=== PATIENT | female | born 1995 | race Caucasian/White ===

== ENCOUNTER → 2018-06-03 | Outpatient (CLI) | payer BC ==
--- NOTE | 2018-06-03 13:36 | US ---
EXAMINATION TYPE: US abdomen complete DATE OF EXAM: 06/03/2018 COMPARISON: None CLINICAL HISTORY: R10.9 Abd pain. Intermittent left flank pain x 2 months TECHNIQUE: Multiple sonographic images of the abdomen are obtained. FINDINGS: EXAM MEASUREMENTS: Liver Length: 11.9 cm Gallbladder Wall: 0.2 cm CBD: 0.3 cm Spleen: 12.5 cm Right Kidney: 8.4 x 5.1 x 4.7 cm Left Kidney: 9.1 x 3.9 x 4.2 cm Pancreas: obscured by overlying midline bowel gas Liver: visualized portions wnl, scanned intercostally, limited by rib shadowing Gallbladder: wnl Evidence for sonographic Pruitt's sign: no CBD: visualized portions wnl, limited by overlying bowel gas Spleen: wnl Right Kidney: wnl Left Kidney: wnl Upper IVC: wnl Abd Aorta: visualized portions wnl, limited by overlying midline bowel gas IMPRESSION: Bowel gas shadowing causing some limitations. Otherwise, no specific abnormality identified.
== END | disposition home or self-care (01) ==
LOC: RADUSWWP 10:18
PROVIDERS: ATTEND Family Medicine
DX: R14.3 Flatulence (principal)
CPT/HCPCS: 76700

== ENCOUNTER → 2018-06-12 | Outpatient (CLI) | payer BC ==
--- NOTE | 2018-06-12 16:00 | US ---
EXAMINATION TYPE: US pelvic complete DATE OF EXAM: 06/12/2018 COMPARISON: NONE CLINICAL HISTORY: R10.9 Abd pain. Abdominal pain. No periods TECHNIQUE: Transabdominal (TA). Transabdominal sonographic images of the pelvis were acquired. Date of LMP: Unknown LMP, G0 EXAM MEASUREMENTS: Uterus: 7.0 x 3.3 x 2.0 cm Endometrial Stripe: 0.2 cm Right Ovary: 3.2 x 2.1 x 1.4 cm Left Ovary: 2.8 x 1.6 x 1.5 cm 1. Uterus: Anteverted wnl 2. Endometrium: wnl 3. Right Ovary: follicles seen 4. Left Ovary: follicles seen 5. Bilateral Adnexa: wnl 6. Posterior cul-de-sac: no free fluid IMPRESSION: Physiologic ovarian follicular change of the ovaries. No abnormal endometrial thickening or abnormal adnexal mass.
== END | disposition home or self-care (01) ==
LOC: RADUSWWP 15:27
PROVIDERS: ATTEND Family Medicine
DX: R10.9 Unspecified abdominal pain (principal)
CPT/HCPCS: 76856

== ENCOUNTER 2019-08-17 15:26 | Emergency (ER) | payer BC ==
[2019-08-17 15:35] VITALS: TEMP 98
[2019-08-17] MEDS ORDERED: SODIUM CHLORIDE 0.9% 1,000 ML IV STA (15:48)
--- NOTE | 2019-08-17 15:54 | ED ---
General Adult HPI - General Chief complaint: Nausea/Vomiting/Diarrhea Stated complaint: Nausea/vomiting Time Seen by Provider: 08/17/19 15:37 Source: patient, RN notes reviewed, old records reviewed Mode of arrival: ambulatory Limitations: no limitations - History of Present Illness Initial comments: 23 -year-old female presenting for evaluation of nausea vomiting. Patient's currently 9 weeks . She contacted her telephone solicitor with complaints of vomiting for the past 4 days recommended she present to the emergency department for IV fluids. She has been taking vitamin B6 with minimal improvement in symptoms. She states that for the past 4 days she has not been able to keep much down. She denies abdominal pain. Denies vaginal bleeding or vaginal discharge. She is . No fever. No URI symptoms. No dysuria. - Related Data Home Medications Medication Instructions Recorded Confirmed No Known Home Medications 03/05/14 02/17/17 Allergies Allergy/AdvReac Type Severity Reaction Status Date / Time clindamycin Allergy Rash/Hives Verified 08/17/19 15:35 Review of Systems ROS Statement: Those systems with pertinent positive or pertinent negative responses have been documented in the HPI. ROS Other: All systems not noted in ROS Statement are negative. Past Medical History Past Medical History: No Reported History Additional Past Medical History / Comment(s): spleen laceration History of Any Multi-Drug Resistant Organisms: None Reported Past Surgical History: Orthopedic Surgery Past Psychological History: No Psychological Hx Reported Smoking Status: Never smoker Past Alcohol Use History: None Reported Past Drug Use History: None Reported General Exam Limitations: no limitations General appearance: alert, in no apparent distress Head exam: Present: atraumatic, normocephalic Eye exam: Present: normal appearance, PERRL ENT exam: Present: normal exam Neck exam: Present: normal inspection. Absent: tenderness, meningismus Respiratory exam: Present: normal lung sounds bilaterally. Absent: respiratory distress, wheezes Cardiovascular Exam: Present: regular rate, normal rhythm GI/Abdominal exam: Present: soft. Absent: distended, tenderness, guarding, rebound Extremities exam: Present: normal inspection, normal capillary refill. Absent: pedal edema Neurological exam: Present: alert, oriented X3, CN II-XII intact. Absent: motor sensory deficit Psychiatric exam: Present: normal affect, normal mood Skin exam: Present: warm, dry, intact. Absent: cyanosis, diaphoretic Course Vital Signs 08/17/19 15:31 Temperature 98.0 F Pulse Rate 99 Respiratory 20 Rate Blood Pressure 126/89 O2 Sat by Pulse 99 Oximetry Medical Decision Making - Medical Decision Making 23-year-old female with nausea vomiting, early in . Currently 9 weeks. Well-appearing with stable vitals. Given IV hydration and feeling much better on reevaluation. Normal CBC, normal CMP. She has 2+ ketones in the urine. She's had no vomiting in the emergency department. Feeling better. She has an appointment for 2 weeks with her OB and ultrasound. - Lab Data Result diagrams: 08/17/19 15:50 08/17/19 15:50 Lab Results 08/17/19 08/17/19 08/17/19 Range/Units 15:50 15:50 15:50 WBC 9.1 (3.8-10.6) k/uL RBC 4.93 (3.80-5.40) m/uL Hgb 15.4 (11.4-16.0) gm/dL Hct 42.9 (34.0-46.0) % MCV 87.0 (80.0-100.0) fL MCH 31.2 (25.0-35.0) pg MCHC 35.9 (31.0-37.0) g/dL RDW 12.0 (11.5-15.5) % Plt Count 178 (150-450) k/uL Neutrophils % 70 % Lymphocytes % 21 % Monocytes % 6 % Eosinophils % 1 % Basophils % 0 % Neutrophils # 6.4 (1.3-7.7) k/uL Lymphocytes # 1.9 (1.0-4.8) k/uL Monocytes # 0.5 (0-1.0) k/uL Eosinophils # 0.1 (0-0.7) k/uL Basophils # 0.0 (0-0.2) k/uL Hyperchromasia Slight Sodium 135 L (137-145) mmol/L Potassium 3.5 (3.5-5.1) mmol/L Chloride 103 (98-107) mmol/L Carbon Dioxide 22 (22-30) mmol/L Anion Gap 10 mmol/L BUN 7 (7-17) mg/dL Creatinine 0.51 L (0.52-1.04) mg/dL Est GFR (CKD-EPI)AfAm >90 (>60 ml/min/1.73 sqM) Est GFR (CKD-EPI)NonAf >90 (>60 ml/min/1.73 sqM) Glucose 120 H (74-99) mg/dL Calcium 9.9 (8.4-10.2) mg/dL Total Bilirubin 0.8 (0.2-1.3) mg/dL AST 21 (14-36) U/L ALT 11 (4-34) U/L Alkaline Phosphatase 72 (38-126) U/L Total Protein 7.4 (6.3-8.2) g/dL Albumin 4.6 (3.5-5.0) g/dL Urine Color Yellow Urine Appearance Cloudy H (Clear) Urine pH 6.0 (5.0-8.0) Ur Specific [place] 1.027 (1.001-1.035) Urine Protein Trace H (Negative) Urine Glucose (UA) Negative (Negative) Urine Ketones 2+ H (Negative) Urine Blood Negative (Negative) Urine Nitrite Negative (Negative) Urine Bilirubin Negative (Negative) Urine Urobilinogen 3.0 (<2.0) mg/dL Ur Leukocyte Esterase Negative (Negative) Urine RBC 1 (0-5) /hpf Urine WBC 2 (0-5) /hpf Ur Squamous Epith Cells 9 H (0-4) /hpf Urine Mucus Many H (None) /hpf Disposition Clinical Impression: Hyperemesis gravidarum Disposition: HOME SELF-CARE Condition: Good Instructions (If sedation given, give patient instructions): Hyperemesis Gravidarum (ED) Is patient prescribed a controlled substance at d/c from ED?: No Referrals: Prem Celaya MD [Primary Care Provider] - 1-2 days Time of Disposition: 16:37
[2019-08-17 16:12] LABS: Basophils % (A) 0 %; Eosinophils # (A) 0.1 k/uL (0-0.7); Eosinophils % (A) 1 %; HCT 42.9 % (34.0-46.0); HGB 15.4 gm/dL (11.4-16.0); Hyperchromasia Slight; Lymphocytes # (A) 1.9 k/uL (1.0-4.8); Lymphocytes % (A) 21 %; MCH 31.2 pg (25.0-35.0); MCHC 35.9 g/dL (31.0-37.0); Mean Platelet Volume 7.6; Monocytes # (A) 0.5 k/uL (0-1.0); Monocytes % (A) 6 %; Neutrophils # (A) 6.4 k/uL (1.3-7.7); Neutrophils % (A) 70 %; Platelet Count 178 k/uL (150-450); RBC 4.93 m/uL (3.80-5.40); WBC 9.1 k/uL (3.8-10.6)
[2019-08-17 16:16] LABS: Appearance,Urine Cloudy (Clear); Bilirubin,Urine Negative (Negative); Blood,Urine Negative (Negative); Color,Urine Yellow; Glucose,Urine (UA) Negative (Negative); Ketones,Urine 2+ (Negative); Leukocyte Esterase,Urine Negative (Negative); Mucus,Urine Many /hpf; Nitrite,Urine Negative (Negative); Protein,Urine Trace (Negative); RBC,Urine 1 /hpf (0-5); Specific Gravity,Urine 1.027 (1.001-1.035); Squamous Epithelial Cell,Urine 9 /hpf (0-4); WBC,Urine 2 /hpf (0-5)
[2019-08-17 16:22] LABS: ALT 11 U/L (4-34); AST 21 U/L (14-36); African American GFR (CKD) >90 (>60 ml/min/1.73 sqM); Albumin 4.6 g/dL (3.5-5.0); Alkaline Phosphatase 72 U/L (38-126); Anion Gap 10 mmol/L; Blood Urea Nitrogen 7 mg/dL (7-17); Calcium 9.9 mg/dL (8.4-10.2); Carbon Dioxide 22 mmol/L (22-30); Chloride 103 mmol/L (98-107); Glucose 120 mg/dL (74-99); Non-African American GFR(CKD) >90 (>60 ml/min/1.73 sqM); Potassium 3.5 mmol/L (3.5-5.1); Sodium 135 mmol/L (137-145); Total Bilirubin 0.8 mg/dL (0.2-1.3); Total Protein 7.4 g/dL (6.3-8.2)
[2019-08-17 16:45] VITALS: BP 121/74; PULSE 80; RESP 18
== END 2019-08-17 16:48 | disposition home or self-care (01) ==
LOC: EC 15:26
DX: O21.0 Mild hyperemesis gravidarum (principal); O99.89 Other specified diseases and conditions complicating pregnancy, childbirth and the puerperium; R19.7 Diarrhea, unspecified; Z3A.09 9 weeks gestation of pregnancy; Z88.1 Allergy status to other antibiotic agents
CPT/HCPCS: 36415; 80053; 81001; 85025; 99284

== ENCOUNTER 2021-07-09 02:48 | Emergency (ER) | payer BC ==
[2021-07-09 02:53] VITALS: BP 127/94; PULSE 99; RESP 16; TEMP 98.1
[2021-07-09] MEDS ORDERED: dexAMETHasone 2 MG TAB PO STA (02:56)
[2021-07-09] MEDS ORDERED: FAMOTIDINE 20 MG TAB PO STA (02:56)
--- NOTE | 2021-07-09 02:56 | ED ---
Allergic Reaction HPI - General Chief complaint: Allergic Reaction Stated complaint: rash Time Seen by Provider: 07/09/21 02:56 Source: patient, RN notes reviewed, old records reviewed Mode of arrival: ambulatory Limitations: no limitations - History of Present Illness Initial Comments: This is a 25-year-old female to the emergency department for evaluation. Patient presents today after beginning ALLERGIC reaction which happened prior to going to work today. Patient did have significant ALLERGIC reaction prior to arrival and I persistent here in the emergency department. Patient's cheeks upper arms chest and back is relatively warm with severe itching. Patient has otherwise no headache no current chest pain or shortness of breath. Patient d oes not know specific allergen she was exposed to. Shortness with abdominal pain. No swelling of her lips tongue or throat. Patient feels good for discharge home MD Complaint: allergic reaction, hives, facial swelling -: hour(s) Exposure: unknown Symptoms: rash, itching, facial swelling Severity: mild Treatment Prior to Arrival: none Previous Allergy History: none - Related Data Previous Rx's Medication Instructions Recorded Famotidine [Pepcid] 40 mg PO BID #28 tablet 07/09/21 hydrOXYzine HCL [Atarax] 25 mg PO TID PRN #15 tab 07/09/21 predniSONE 50 mg PO DAILY #5 tab 07/09/21 Allergies Allergy/AdvReac Type Severity Reaction Status Date / Time clindamycin Allergy Rash/Hives Verified 07/09/21 02:53 morphine AdvReac Itching Verified 07/09/21 02:53 Review of Systems ROS Statement: Those systems with pertinent positive or pertinent negative responses have been documented in the HPI. ROS Other: All systems not noted in ROS Statement are negative. Past Medical History Past Medical History: No Reported History Additional Past Medical History / Comment(s): spleen laceration History of Any Multi-Drug Resistant Organisms: None Reported Past Surgical History: Orthopedic Surgery Past Psychological History: No Psychological Hx Reported Smoking Status: Vaper Past Alcohol Use History: Occasional Past Drug Use History: None Reported General Exam General appearance: alert, in no apparent distress Head exam: Present: atraumatic, normocephalic, normal inspection Eye exam: Present: normal appearance, PERRL, EOMI. Absent: scleral icterus, conjunctival injection, periorbital swelling ENT exam: Present: normal exam, mucous membranes moist Neck exam: Present: normal inspection. Absent: tenderness, meningismus, lymphadenopathy Respiratory exam: Present: normal lung sounds bilaterally. Absent: respiratory distress, wheezes, rales, rhonchi, stridor Cardiovascular Exam: Present: regular rate, normal rhythm, normal heart sounds. Absent: systolic murmur, diastolic murmur, rubs, gallop, clicks GI/Abdominal exam: Present: soft, normal bowel sounds. Absent: distended, tenderness, guarding, rebound, rigid Extremities exam: Present: normal inspection, full ROM, normal capillary refill. Absent: tenderness, pedal edema, joint swelling, calf tenderness Back exam: Present: normal inspection Neurological exam: Present: alert, oriented X3, CN II-XII intact Psychiatric exam: Present: normal affect, normal mood Skin exam: Present: warm, dry, intact, normal color. Absent: rash Course Vital Signs 07/09/21 02:49 Temperature 98.1 F Pulse Rate 99 Respiratory 16 Rate Blood Pressure 127/94 O2 Sat by Pulse 97 Oximetry - Reevaluation(s) Reevaluation #1: 07/09/21 03:40 Medical record is reviewed Reevaluation #2: 07/09/21 03:40 Pain and symptoms are significantly improved Reevaluation #3: 07/09/21 03:40 Patient informed results and questions have been answered Medical Decision Making - Medical Decision Making 25 female with urticarial-type reaction. Patient at this point is feeling improved and can be discharged home Disposition Clinical Impression: Allergic reaction, Urticaria Disposition: HOME SELF-CARE Condition: Good Instructions (If sedation given, give patient instructions): Anaphylaxis (ED) Prescriptions: hydrOXYzine HCL [Atarax] 25 mg PO TID PRN #15 tab PRN Reason: Itching Famotidine [Pepcid] 40 mg PO BID #28 tablet predniSONE 50 mg PO DAILY #5 tab Is patient prescribed a controlled substance at d/c from ED?: No Referrals: Prem Celaya MD [Primary Care Provider] - 1-2 days
[2021-07-09] MEDS ORDERED: hydrOXYzine HCL 25 MG TAB PO ONE (03:00)
== END 2021-07-09 04:15 | disposition home or self-care (01) ==
LOC: EC 02:48
DX: L50.0 Allergic urticaria (principal); F17.290 Nicotine dependence, other tobacco product, uncomplicated
CPT/HCPCS: 99283; J8540